=== PATIENT | male | born 1985 | race Caucasian/White ===

== ENCOUNTER 2019-10-01 00:57 | Emergency (ER) | payer BC, OTHER ==
[2019-10-01 01:17] VITALS: BP 134/79; PULSE 70
[2019-10-01] MEDS ORDERED: Tetracaine HCl/PF 0.5% 4 ML Bottle EYERT ONE (01:28)
--- NOTE | 2019-10-01 01:28 | EDM.PDOC ---
ED HPI GENERAL MEDICAL PROBLEM - General Chief Complaint: Eye Problems Stated Complaint: foreign object in eye Time Seen by Provider: 10/01/19 01:20 Source of Information: Reports: Patient, Old Records ([facility] chart/EMR) History Limitations: Reports: No Limitations - History of Present Illness INITIAL COMMENTS - FREE TEXT/NARRATIVE: The patient was brought to the emergency room via transport vehicle from [facility] for evaluation of a Workmen's Compensation injury, which occurred at about midnight this evening. The patient was cutting metal tubing while wearing safety glasses when he had a foreign sensation in his right eye. He did rinse out his eye thoroughly prior to arrival with no foreign body removed, although possible remaining foreign body by his history. He denies any visual changes, other injuries, etc.. The patient also denies any recent fever, cough, wheezing , dyspnea, etc.. No recent history of abdominal pain, heartburn, nausea, diarrhea, melena, gross hematochezia, or any food intolerance, including fatty foods, etc.. Onset: Today, Sudden Onset Date: 10/01/19 Onset Time: 00:00 Duration: Constant Location: Reports: Other (Right eye). Denies: Head, Face, Neck, Chest, Abdomen , Back, Radiates to Quality: Reports: Ache, Same as Previous Episode Severity: Mild Improves with: Reports: None Worsens with: Reports: None Context: Reports: Trauma (As above) Associated Symptoms: Denies: Confusion, Chest Pain, Cough, Diaphoresis, Fever/ Chills, Headaches, Nausea/Vomiting, Rash, Shortness of Breath, Weakness Treatments FINISHER SCREWDOWN: Reports: Other (see below) (As above) Right Eye Pain Score (Numeric/FACES): 2 - Related Data Allergies Allergy/AdvReac Type Severity Reaction Status Date / Time No Known Drug Allergies Allergy Cannot Verified 10/01/19 01:08 Remember Home Meds: Home Meds Multivitamin [Multi-Vitamin Daily] 1 tab PO DAILY 11/12/14 [History] Colestipol [Colestipol HCl] 2 gm PO BID 10/01/19 [History] Loperamide [Imodium AD] 1 - 2 tab PO Q6HR PRN MDD 16mg 10/01/19 [History] Polymyxin B Sulf/Trimethoprim [Polytrim Eye Drops] 2 drop OP QID #1 bottle 10/01 [Rx] Past Medical History HEENT History: Reports: None. Denies: Impaired Vision Cardiovascular History: Reports: None. Denies: Afib, Arrhythmia, Heart Murmur, Hypertension Gastrointestinal History: Reports: Chronic Diarrhea, Fatty Liver, Irritable Bowel Syndrome, Other (See Below) Other Gastrointestinal History: Fatty liver by ultrasound. Musculoskeletal History: Reports: Arthritis, Osteoarthritis. Denies: Fracture Psychiatric History: Reports: ADHD Endocrine/Metabolic History: Reports: Obesity/BMI 30+, Other (See Below) Other Endocrine/Metabolic History: Hypoalbuminemia - Past Surgical History HEENT Surgical History: Reports: None. Denies: Eye Surgery, Laser Surgery, LASIK GI Surgical History: Reports: None. Denies: Cholecystectomy Male Surgical History: Reports: Circumcision, Other (See Below). Denies: Vasectomy Other Male Surgeries/Procedures: Circumcision as an infant. Musculoskeletal Surgical History: Reports: Arthroscopic Knee, Other (See Below) Other Musculoskeletal Surgeries/Procedures:: Arthroscopic right knee surgery at age 17. - Past Imaging History Past Imaging History: Reports: CAT Scan (Abdomen and pelvis on 08/13/16.), Ultrasound (Gallbladder ultrasound on 06/18/12.) Social & Family History - Family History Oncologic: Reports: Prostate, Other (See Below) Other Oncologic Family History: Maternal grandfather with fatal prostate cancer in his 60-70s. - Tobacco Use Smoking Status *Q: Current Every Day Smoker Tobacco Use Within Last Twelve Months: Cigarettes Years of Tobacco use: 17 Packs/Tins Daily: 0.5 Packs/Tins Daily Comment: Started smoking at age 17 with average use of one half 1 pack per day. Patient also used chewing tobacco between ages 20 and 22. Used Tobacco, but Quit: No Smoking Cessation Information Provided To Patient: Yes Second Hand Smoke Exposure: Yes Source of Second Hand Smoke Exposure: smokes Second Hand Smoke Education Provided: Yes - Recreational Drug Use Recreational Drug Use: Yes Drug Use in Last 12 Months: No Recreational Drug Type: Reports: Marijuana/Hashish (One year abuse with no use since 2005.). Denies: Amphetamines (Speed), Heroin, Inhalants (Glues, Solvents , Aerosols), LSD (Acid), Methamphetamine, Morphine, Oxycodone - Living Situation & Occupation Living situation: Reports: (No children) Occupation: Employed ([employer]) ED ROS GENERAL - Review of Systems Review Of Systems: Comprehensive ROS is negative, except as noted in HPI. ED EXAM GENERAL W FULL EYE - Physical Exam Exam: See Below Exam Limited By: No Limitations General Appearance: Alert, WD/WN, No Apparent Distress Eye Exam: Right Eye: Conjunctival Injection (Mild), Foreign Body (1 mm metallic foreign body removed from upper eyelid with a Q-tip), Bilateral Eye: EOMI, Normal Fundi, PERRL Visual Acuity (R) 20/: 15 Visual Acuity (L) 20/: 20 With Correction: No Eyelids: Right: Foreign Body (As above), Lid Everted for Exam Conjunctiva & Sclera: Right: Discharge (Mild clear), Injected (Mild) Cornea Exam: Right: Corneal Abrasion (2 mm over medial iris), Examined with Flourescein Extraocular Movements: Bilateral: Intact Pupils: Normal Accommodation Pupillary Size: Bilateral: 6 mm Pupillary Reaction: Bilateral: Brisk Anterior Chamber: Bilateral: Normal Appearance Posterior Chamber: Bilateral: Normal Funduscopic Ears: Normal External Exam, Normal Canal, Hearing Grossly Normal, Normal TMs Nose: Normal Inspection, Normal Mucosa, No Blood Throat/Mouth: Normal Inspection, Normal Lips, Normal Teeth, Normal Gums, Normal Oropharynx, Normal Voice, No Airway Compromise. No: Dysphagia, Perioral Cyanosis Head: Atraumatic, Normocephalic. No: Facial Swelling, Facial Tenderness, Sinus Tenderness Neck: Normal Inspection, Supple, Non-Tender, Full Range of Motion. No: Lymphadenopathy (L), Lymphadenopathy (R), Thyromegaly Respiratory/Chest: No Respiratory Distress, Lungs Clear, Normal Breath Sounds, No Accessory Muscle Use, Chest Non-Tender. No: Pleural Rub, Retractions Cardiovascular: Normal Peripheral Pulses, Regular Rate, Rhythm, No Edema, No Gallop, No JVD, No Murmur, No Rub. No: Gallop/S3, Gallop/S4, Friction Rub GI/Abdominal: Normal Bowel Sounds, Soft, Non-Tender, No Organomegaly, No Distention, No Abnormal Bruit, No Mass, Other (Obese). No: Guarding (Male) Exam: Deferred Rectal (Males) Exam: Deferred Back Exam: Normal Inspection, Full Range of Motion. No: CVA Tenderness (L), CVA Tenderness (R), Muscle Spasm Extremities: Normal Inspection, Normal Range of Motion, Non-Tender, No Pedal Edema, Normal Capillary Refill. No: Madalyn's Sign Neurological: Alert, Oriented, CN II-XII Intact, Normal Cognition, Normal Gait, No Motor/Sensory Deficits Psychiatric: Normal Affect, Normal Mood Skin Exam: Warm, Dry, Intact, Normal Color, No Rash, Stud(s) (Multiple including lower lip and inferior auricles bilaterally), Tattoo(s) (Multiple). No: Diaphoretic, Wound/Incision Lymphatic: No Adenopathy Course - Vital Signs Last Recorded V/S: Last Vital Signs Temp 36.8 C 10/01/19 01:00 Pulse 70 10/01/19 01:00 Resp 16 10/01/19 01:00 BP 134/79 10/01/19 01:00 Pulse Ox 97 10/01/19 01:00 Vital Signs - 24 hr 10/01/19 01:00 Temperature [ 36.8 C Temporal] Pulse, 70 Peripheral [ Pulse Oximetry] Respiratory 16 Rate Blood Pressure 134/79 [Left Upper Arm ] O2 Sat by Pulse 97 Oximetry - Orders/Labs/Meds Orders: Active Orders 24 hr Category Date Time Status Obtain Past Medical Record [OM.PC] Routine Oth 10/01/19 01:28 Active Labs: None Meds: Medications Discontinued Medications Generic Name Dose Route Start Last Admin Trade Name Jason PRN Reason Stop Dose Admin Balanced Salt Solution 30 ml 10/01/19 01:29 Eye Stream Eye Rinse EYERT 10/01/19 01:30 ONETIME ONE Tetracaine HCl 1 ml 10/01/19 01:28 Tetracaine 0.5% Steri-Unit Yasmeen EYERT 10/01/19 01:29 ASDIRECTED ONE - Radiology Interpretation Free Text/Narrative:: None Departure - Departure Time of Disposition: 02:00 Disposition: Home, Self-Care 01 Condition: Good Clinical Impression: Tobacco abuse counseling, Obesity Corneal abrasion Qualifiers: Encounter type: initial encounter Laterality: right Qualified Code(s): S05.01XA - Injury of conjunctiva and corneal abrasion without foreign body, right eye, initial encounter Foreign body of right eye Qualifiers: Encounter type: initial encounter Qualified Code(s): T15.91XA - Foreign body on external eye, part unspecified, right eye, initial encounter - Discharge Information *PRESCRIPTION DRUG MONITORING PROGRAM REVIEWED*: Not Applicable *COPY OF PRESCRIPTION DRUG MONITORING REPORT IN PATIENT MICHEL: Not Applicable Prescriptions: Polymyxin B Sulf/Trimethoprim [Polytrim Eye Drops] 2 drop OP QID #1 bottle Instructions: Health Risks of Smoking, Corneal Abrasion, [id number], Steps to Quit Smoking Referrals: Quin Tejada, [employer] [Primary Care Provider] - Forms: ED Department Discharge Additional Instructions: 1. Follow up with your regular provider in 4-7 days as needed, if symptoms persist. Bring these discharge instructions with you to that visit. 2. Tylenol 650 mg by mouth every 4 hours and/or OTC ibuprofen 2-3 tabs by mouth every 6 hours with food as directed./needed. You may stagger these medications for 48-72 hours only, which essentially means that you are receiving a pain medication about every 2 hours. 3. Work excuse- See Form 4. Stop all tobacco use ABILIO as directed/per provided information and consider contacting [employer]uit [facility], etc.. 5. Immediately after this visit verify that your cellular telephone's voicemail has been activated and is empty. Also verify that your home telephone 's answering machine is operating properly and has space to receive messages. Note that it is sometimes necessary for us to be able to contact you at a later date to discuss your medical care. 6. Please remember that we are ALWAYS here for you and want to answer any questions you may have. Feel free to call the hospital any time and we call you back ABILIO. 7. Polytrim eyedrops 2 drops in the affected eye 4 times a day with every 2 hours as needed for at least 5 days AND until 48 hours after complete resolution of symptoms as directed. You may use additional OTC artificial tears as needed as per label instructions. - Problem List & Annotations (1) Corneal abrasion SNOMED Code(s): 17140686 Code(s): S05.00XA - INJ CONJUNCTIVA AND CORNEAL ABRASION W/O FB, UNSP EYE, INIT Status: Acute Priority: High Current Visit: Yes Onset Date: Annotation/Comment:: TDAP 08/04/15, which was confirmed through [facility]. No tetanus booster needed. Workmen's Compensation forms and WORK excuse were completed. Polytrim ophthalmic solutionemergency room prescription provided. Qualifiers: Encounter type: initial encounter Laterality: right Qualified Code(s): S05.01XA - Injury of conjunctiva and corneal abrasion without foreign body, right eye, initial encounter (2) Foreign body of right eye SNOMED Code(s): 26445544 Code(s): T15.91XA - FOREIGN BODY ON EXTERNAL EYE, PART UNSP, RIGHT EYE, INIT Status: Acute Priority: High Current Visit: Yes Onset Date: 10/01/19 Annotation/Comment:: Metallic foreign body removed from the right upper eyelid. No evidence of foreign body on the cornea itself, however. Jay lamp was used. Qualifiers: Encounter type: initial encounter Qualified Code(s): T15.91XA - Foreign body on external eye, part unspecified, right eye, initial encounter (3) Tobacco abuse counseling SNOMED Code(s): 688837683, 413167386, 501083093 Code(s): Z71.6 - TOBACCO ABUSE COUNSELING Status: Chronic Priority: Medium Current Visit: Yes Annotation/Comment:: Tobacco cessation strongly encouraged with information provided. He already has information from the Quit- line. (4) Irritable bowel syndrome (IBS) SNOMED Code(s): 35638735 Code(s): K58.9 - IRRITABLE BOWEL SYNDROME WITHOUT DIARRHEA Status: Chronic Priority: Medium Current Visit: Yes Annotation/Comment:: Stable by history. Qualifiers: Irritable bowel syndrome type: with diarrhea Qualified Code(s): K58.0 - Irritable bowel syndrome with diarrhea (5) Obesity SNOMED Code(s): 038365129, [id number] Code(s): E66.9 - OBESITY, UNSPECIFIED Status: Chronic Priority: Medium Current Visit: Yes Annotation/Comment:: Weight loss in moderation advisable. Note history of fatty liver. Qualifiers: Obesity type: due to excess calories Obesity classification: adult class 2 (BMI 35 - 39.9) - Problem List Review Problem List Initiated/Reviewed/Updated: Yes - My Orders Last 24 Hours: My Active Orders 10/01/19 01:28 Obtain Past Medical Record [OM.PC] Routine - Assessment/Plan Last 24 Hours: My Active Orders 10/01/19 01:28 Obtain Past Medical Record [OM.PC] Routine Assessment:: As above Plan: As above. Extensive precautions were given to the patient, who is in agreement with the treatment plan. See Patient Instructions for further treatment and plan.
[2019-10-01] MEDS ORDERED: Balanced Salt Solution Ophth Irrig 30 ML Bottle EYERT ONE (01:29)
== END 2019-10-01 02:00 | disposition home or self-care (01) ==
LOC: LL.ED 00:57
DX: T15.11XA Foreign body in conjunctival sac, right eye, initial encounter (principal); F17.210 Nicotine dependence, cigarettes, uncomplicated; Z71.6 Tobacco abuse counseling; E66.9 Obesity, unspecified; Z79.899 Other long term (current) drug therapy; X58.XXXA Exposure to other specified factors, initial encounter; Y99.0 Civilian activity done for income or pay
CPT/HCPCS: 99283